=== PATIENT | female | born 1980 | race Caucasian/White ===

== ENCOUNTER 2017-10-29 09:52 | Day surgery (SDC) | payer OTHER ==
[2017-10-29] MEDS: Lactated Ringers 1,000 ML IV SCH ×2 (11:00→15:10)
[2017-10-29] MEDS ORDERED: Bupivacaine 0.25% 30 ML SDV ONE (11:27)
[2017-10-29] MEDS ORDERED: fentaNYL 250 MCG/5 ML SDV ONE (11:35)
[2017-10-29] MEDS ORDERED: Midazolam 1 MG/ML 2 ML SDV ONE (11:35)
[2017-10-29] MEDS ORDERED: Propofol 200 MG/20 ML SDV ONE (11:35)
[2017-10-29] MEDS ORDERED: Lidocaine 1% 4 ML ONE (11:36)
[2017-10-29] MEDS ORDERED: Ondansetron 4 MG/2 ML SDV ONE (11:36)
[2017-10-29] MEDS ORDERED: Dexamethasone 4 MG/ML 5 ML MDV ONE (11:36)
[2017-10-29] MEDS ORDERED: Rocuronium 50 MG/5 ML Vial ONE (11:36)
[2017-10-29] MEDS ORDERED: Sodium Chloride 0.9% 10 ML Syringe FLUSH PRN (12:34)
[2017-10-29] MEDS ORDERED: Lidocaine 1%/Sod Bicarbonate in NS 8.4% 1 ML Syringe IDERM ONE (12:39)
[2017-10-29] MEDS ORDERED: HYDROmorphone 0.5 MG/0.5 ML Syringe ONE (13:32)
--- NOTE | 2017-10-29 14:34 | CR ---
Left clavicle: Two views of the right clavicle were obtained utilizing C-arm device. Study shows placement of plate and screws affixing previous left clavicle fracture. Alignment has been restored to anatomic. Fluoroscopy time given as 4.0 seconds. Impression: 1. Reduction and fixation of previous left clavicle fracture. Diagnostic code #2
[2017-10-29] MEDS ORDERED: Meperidine 50 MG/ML Vial IVPUSH PRN (14:53)
[2017-10-29] MEDS ORDERED: diphenhydrAMINE 50 MG/ML SDV IVPUSH PRN (14:53)
[2017-10-29] MEDS ORDERED: Ondansetron 4 MG/2 ML SDV IVPUSH PRN (14:53)
[2017-10-29] MEDS ORDERED: fentaNYL 100 MCG/2 ML SDV EPIDUR PRN (14:53)
--- NOTE | 2017-10-29 14:53 | PCM.POSTAN ---
POST ANESTHESIA ASSESSMENT - MENTAL STATUS Mental Status: Alert, Oriented - VITAL SIGNS Pulse Rate: 81 SaO2: 99 Resp Rate: 10 Blood Pressure: 128/77 Temperature: 36.6 C - RESPIRATORY Respiratory Status: Respiratory Rate WNL, Airway Patent, O2 Saturation Stable, Supplemental Oxygen - CARDIOVASCULAR CV Status: Pulse Rate WNL, Blood Pressure Stable - GASTROINTESTINAL GI Status: No Symptoms - PAIN Pain Score: 0 - POST OP HYDRATION Hydration Status: Adequate & Stable
--- NOTE | 2017-10-29 15:04 | PCM.PREANE ---
Preanesthetic Assessment - Procedure Proposed Procedure: ORIF Left clavicle fracture - Anesthesia/Transfusion/Family Hx Anesthesia History: Prior Anesthesia Reaction Type of Anesthesia Reaction: Excessive Nausea/Vomiting Family History of Anesthesia Reaction: No Transfusion History: No Prior Transfusion(s) - Review of Systems General: No Symptoms Pulmonary: No Symptoms Cardiovascular: No Symptoms Gastrointestinal: Other (GERD) Neurological: Headache, Other (Turmor on pituitary (told it was benign) diagnosed about 3 months ago) Other: Reports: None - Physical Assessment NPO Status Date: 10/29/17 NPO Status Time: 00:00 Pulse: 81 O2 Sat by Pulse Oximetry: 99 Respiratory Rate: 10 Blood Pressure: 128/77 Temperature: 36.6 C Vital Signs: Last Vital Signs Temp 36.6 C 10/29/17 14:53 Pulse 81 10/29/17 14:53 Resp 10 L 10/29/17 14:53 BP 128/77 10/29/17 14:53 Pulse Ox 99 10/29/17 14:53 Height: 1.63 m Weight: 83.007 kg ASA Class: 2 Mental Status: Alert & Oriented x3 Airway Class: Mallampati = 2 Dentition: Reports: Normal Dentition Thyro-Mental Finger Breadths: 3 Mouth Opening Finger Breadths: 3 ROM/Head Extension: Full Lungs: Clear to Auscultation, Normal Respiratory Effort Cardiovascular: Regular Rate, Regular Rhythm - Lab Values: Laboratory Last Values HCG, Qual Positive (NEGATIVE) H 10/29/17 11:30 HCG, Quant 21.0 mIU/mL 10/29/17 11:30 Urine HCG, Qual Positive (NEGATIVE) 10/29/17 11:05 MRSA (PCR) Negative 10/28/17 12:50 - Allergies Allergies/Adverse Reactions: Allergies Allergy/AdvReac Type Severity Reaction Status Date / Time Penicillins Allergy Hives Verified 10/28/17 14:07 - Blood Blood Available: No Product(s) Available: None - Anesthesia Plan Pre-Op Medication Ordered: None - Acknowledgements Anesthesia Type Planned: General Anesthesia (Patient has a positive urine HCG level. Serum quantitative test ordered resulted with HCG 21. Patient was unaware she was and was given the choice to talk with an OB before her upcoming procedure to fully understand the risks and complications for both and maternal stantpoints before proceding with surgery. Dr Pompa (whom she has recently seen in the past) came to visit with her regarding her present situation and after speaking with him the patient decided to still proceed with surgery. Pateint has no further questions. 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 Musculoskeletal History: Reports: None Neurological History: Reports: None Psychiatric History: Reports: None Endocrine/Metabolic History: Reports: Other (See Below) Other Endocrine/Metabolic History: pituitary gland tumor Immunologic History: Reports: None Oncologic (Cancer) History: Reports: None Dermatologic History: Reports: None - Past Surgical History Head Surgeries/Procedures: Reports: None HEENT Surgical History: Reports: None Cardiovascular Surgical History: Reports: None Respiratory Surgical History: Reports: None GI Surgical History: Reports: None Female Surgical History: Reports: Breast Implant, LEEP Male Surgical History: Reports: None Endocrine Surgical History: Reports: None Neurological Surgical History: Reports: None Musculoskeletal Surgical History: Reports: None Oncologic Surgical History: Reports: None Dermatological Surgical History: Reports: None - SUBSTANCE USE Smoking Status *Q: Never Smoker Recreational Drug Use History: No - HOME MEDS Home Medications: Home Meds Cabergoline 0.5 tab PO SUWE 10/22/17 [History] - CURRENT (IN HOUSE) MEDS Current Meds: Current Medications Diphenhydramine HCl (Benadryl) 25 mg IVPUSH Q6H PRN PRN Reason: Pruritis Stop: 10/29/17 20:00 Fentanyl (Sublimaze) 100 mcg EPIDUR Q3H PRN PRN Reason: Pain Stop: 10/29/17 20:00 Lactated Ringer's (Ringers, Lactated) 1,000 mls @ 125 mls/hr IV ASDIRECTED RON Stop: 10/29/17 23:00 Last Admin: 10/29/17 11:00 Dose: 125 mls/hr Meperidine HCl (Demerol) 12.5 mg IVPUSH ONETIME PRN PRN Reason: Shivering Ondansetron HCl (Zofran) 4 mg IVPUSH ONETIME PRN PRN Reason: Nausea/Vomiting Sodium Chloride (Saline Flush) 10 ml FLUSH ASDIRECTED PRN PRN Reason: Keep Vein Open Stop: 10/29/17 23:00 Discontinued Medications Bupivacaine HCl (Marcaine 0.25%) Confirm Administered Dose 30 ml .ROUTE .STK- MED ONE Stop: 10/29/17 11:28 Dexamethasone (Dexamethasone) Confirm Administered Dose 20 mg .ROUTE .STK-MED ONE Stop: 10/29/17 11:37 Fentanyl (Sublimaze) Confirm Administered Dose 250 mcg .ROUTE .STK-MED ONE Stop: 10/29/17 11:36 Hydromorphone HCl (Dilaudid) Confirm Administered Dose 1 mg .ROUTE .STK-MED ONE Stop: 10/29/17 13:33 Lidocaine HCl (Xylocaine-Mpf 1%) Confirm Administered Dose 4 mls @ as directed .ROUTE .STK-MED ONE Stop: 10/29/17 11:37 Lidocaine/Sodium Bicarbonate (Buffered Lidocaine 1% In Ns 8.4%) 0.25 ml IDERM ONETIME ONE Stop: 10/29/17 12:40 Midazolam HCl (Versed 1 Mg/Ml) Confirm Administered Dose 2 mg .ROUTE .STK-MED ONE Stop: 10/29/17 11:36 Ondansetron HCl (Zofran) Confirm Administered Dose 4 mg .ROUTE .STK-MED ONE Stop: 10/29/17 11:37 Propofol (Diprivan 20 Ml) Confirm Administered Dose 200 mg .ROUTE .STK-MED ONE Stop: 10/29/17 11:36 Rocuronium Union (Zemuron) Confirm Administered Dose 50 mg .ROUTE .STK-MED ONE Stop: 10/29/17 11:37
[2017-10-29] MEDS ORDERED: Acetaminophen/oxyCODONE 325-5 MG Tab PO PRN (15:52)
--- NOTE | 2017-11-05 06:44 | PCM.OPNOTE ---
- General Post-Op/Procedure Note Date of Surgery/Procedure: 10/29/17 Operative Procedure(s): open reduction internal fixation left clavicle shaft fracture Pre Op Diagnosis: left clavicle shaft fracture Post-Op Diagnosis: Same Anesthesia Technique: General ET Tube, Local Primary Surgeon: Stephan Nguyễn Anesthesia Provider: Phi Lipscomb Product Development Scientist: Reyna Willard EBL in mLs: 50 Complications: None Condition: Good
--- NOTE | 2017-11-09 07:59 | OR ---
DATE OF OPERATION: 10/29/2017 SURGEON: Stephan Nguyễn MD OPERATION PERFORMED: Open reduction, internal fixation of left clavicle shaft fracture. PREOPERATIVE DIAGNOSIS: Left clavicle shaft fracture. POSTOPERATIVE DIAGNOSIS: Left clavicle shaft fracture. ANESTHESIA: General endotracheal intubation with local. ANESTHESIOLOGIST: Phi Lipscomb. ASSISTANTS: 1. Reyna Willard PA-C. ESTIMATED BLOOD LOSS: 50 mL. COMPLICATIONS: None. CONDITION: Stable. DESCRIPTION OF PROCEDURE: The patient was identified in the preop holding area. Proper site was marked and identified by the surgeon. The patient was taken back to the OR after adequate anesthesia, the patient was placed supine on a radiolucent table. Left upper extremity was then sterilely prepped and draped in the usual sterile fashion. OR time-out was performed. The patient received 2 g IV Ancef. Standard incision was made over the clavicle shaft fracture. At this time, taken through the layer of the platysma and then the fracture was identified. At this time, provisional reduction was then done and a 7 hole Aunm contoured clavicle compression plate was then placed. It was found to be in adequate position. At this time, a cortical screw was placed on the medial side and then a cortical screw was placed on the lateral side in compression technique. It was found to have good reduction on both AP, and oblique views. At this time, 2 more nonlocking screws were placed on either side of the fracture, both on the medial and lateral side. It was found to have good provisional fixation. At this time, adequate saline was irrigated through the wound. It was found to have anatomic reduction on C-arm fluoroscopy. An 0 Vicryl was used for closure of the platysma level, 2-0 Vicryl was used subcutaneously, and Prineo was used for the skin. The patient was sent to PACU in stable condition. MMODAL /[id number]
== END 2017-10-29 17:20 | disposition home or self-care (01) ==
LOC: JD.SDS 09:52
PROVIDERS: ATTEND Orthopaedic Surgery
DX: S42.022A Displaced fracture of shaft of left clavicle, initial encounter for closed fracture (principal); V29.9XXA Motorcycle rider (driver) (passenger) injured in unspecified traffic accident, initial encounter; Z88.0 Allergy status to penicillin
CPT/HCPCS: 23515; 36415; 76000; 81025; 84702; 84703; 87641; A9270; C1713; J1100; J1170; J2405; J2704; J3010; J3490; J7120; 00450; J2001; J2250

== ENCOUNTER 2017-11-05 15:15 | Emergency (ER) | payer OTHER ==
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
== END 2017-11-05 16:25 | disposition home or self-care (01) ==
LOC: JD.ED 15:15
DX: S29.012A Strain of muscle and tendon of back wall of thorax, initial encounter (principal); S42.022D Displaced fracture of shaft of left clavicle, subsequent encounter for fracture with routine healing; Z88.0 Allergy status to penicillin; X58.XXXA Exposure to other specified factors, initial encounter; V29.9XXD Motorcycle rider (driver) (passenger) injured in unspecified traffic accident, subsequent encounter
CPT/HCPCS: 99283; 99284

== ENCOUNTER 2018-07-14 05:29 | Emergency (ER) | payer OTHER ==
[2018-07-14] MEDS ORDERED: HYDROmorphone 1 MG/ML Syringe IM ONE (05:54)
--- NOTE | 2018-07-14 05:59 | EDM.PDOC ---
ED HPI GENERAL MEDICAL PROBLEM - General Chief Complaint: ENT Problem Stated Complaint: SWOLLEN JAW/TOOTHACHE Time Seen by Provider: 07/14/18 05:48 Source of Information: Reports: Patient History Limitations: Reports: No Limitations - History of Present Illness INITIAL COMMENTS - FREE TEXT/NARRATIVE: The patient presents with left upper tooth pain and facial swelling. She started having pain yesterday and she made an appointment with her dentist for today. Throughout the night her pain is worse and she has more swelling. She has no fever or chills. The patient is 12 weeks . Onset: Gradual Duration: Day(s): Location: Reports: Face (left upper tooth) Quality: Reports: Sharp Severity: Severe Improves with: Reports: None Worsens with: Reports: None Associated Symptoms: Reports: No Other Symptoms Left Upper Tooth/Teeth Pain Score (Numeric/FACES): 7 - Related Data Allergies Allergy/AdvReac Type Severity Reaction Status Date / Time amoxicillin Allergy Hives Verified 07/14/18 05:50 Home Meds: Home Meds Cabergoline 0.25 mg PO TUFR 01/31/18 [History] Clindamycin HCl 300 mg PO QID #40 capsule 07/14/18 [Rx] Hydrocodone/Acetaminophen [Hydrocodon-Acetaminophen 5-325] 1 - 2 each PO Q6HR PRN #20 tablet 07/14/18 [Rx] Past Medical History - Past Health History Medical/Surgical History: Denies Medical/Surgical History HEENT History: Reports: None Cardiovascular History: Reports: None Respiratory History: Reports: SOB Gastrointestinal History: Reports: None 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, Musculoskeletal History: Reports: None Neurological History: Reports: None Psychiatric History: Reports: None Endocrine/Metabolic History: Reports: Other (See Below) Other Endocrine/Metabolic History: pituitary gland tumor Immunologic History: Reports: None Oncologic (Cancer) History: Reports: None Dermatologic History: Reports: None - Past Surgical History Head Surgeries/Procedures: Reports: None HEENT Surgical History: Reports: None Cardiovascular Surgical History: Reports: None Respiratory Surgical History: Reports: None GI Surgical History: Reports: None Female Surgical History: Reports: Breast Implant, LEEP Endocrine Surgical History: Reports: None Neurological Surgical History: Reports: None Musculoskeletal Surgical History: Reports: None, Other (See Below) Other Musculoskeletal Surgeries/Procedures:: left collar bone surgery, plate placed Oncologic Surgical History: Reports: None Dermatological Surgical History: Reports: None Social & Family History - Tobacco Use Smoking Status *Q: Never Smoker - Caffeine Use Caffeine Use: Reports: None - Recreational Drug Use Recreational Drug Use: No - Living Situation & Occupation Living situation: Reports: Single Occupation: Employed ED ROS ENT - Review of Systems Review Of Systems: See Below Constitutional: Reports: No Symptoms HEENT: Reports: Dental Pain Respiratory: Reports: No Symptoms Cardiovascular: Reports: No Symptoms Endocrine: Reports: No Symptoms GI/Abdominal: Reports: No Symptoms : Reports: No Symptoms Musculoskeletal: Reports: No Symptoms ED EXAM, ENT - Physical Exam Exam: See Below Exam Limited By: No Limitations General Appearance: Alert, No Apparent Distress Ears: Normal External Exam Mouth/Throat: Other (Swelling to the upper jaw with facial swelling and pain upon palpation to the left upper 2nd molar) Course - Vital Signs Last Recorded V/S: Last Vital Signs Temp 97.8 F 07/14/18 05:39 Pulse 91 07/14/18 05:39 Resp 20 07/14/18 05:39 BP 137/100 H 07/14/18 05:39 Pulse Ox 99 07/14/18 05:39 - Re-Assessments/Exams Free Text/Narrative Re-Assessment/Exam: 07/14/18 05:57 I ordered rocephin 1 gram IM and dilaudid 1mg IM. I will get her on clindamycin and some hydrocodone for pain. Departure - Departure Time of Disposition: 06:00 Disposition: Home, Self-Care 01 Condition: Good Clinical Impression: Dental abscess, Pain, dental, Dental cavity - Discharge Information *PRESCRIPTION DRUG MONITORING PROGRAM REVIEWED*: No *COPY OF PRESCRIPTION DRUG MONITORING REPORT IN PATIENT NANI: No Prescriptions: Hydrocodone/Acetaminophen [Hydrocodon-Acetaminophen 5-325] 1 - 2 each PO Q6HR PRN #20 tablet PRN Reason: Pain Clindamycin HCl 300 mg PO QID #40 capsule Referrals: Bennett Rangel PA [Primary Care Provider] - 1 Week Additional Instructions: Take the clindamycin 1 pill 4 times per day for 10 days. Take the hydrocodone as needed for pain. Put warm compresses on your face for 15 minutes 3 times per day for 5 days. Follow up with your dentist. Please return if you are worse.
[2018-07-14] MEDS ORDERED: cefTRIAXone 1 GM, Lidocaine 1% 2.1 ML IM SCH ×2 (06:00)
== END 2018-07-14 06:30 | disposition home or self-care (01) ==
LOC: JD.ED 05:29
DX: K04.7 Periapical abscess without sinus (principal); Z88.1 Allergy status to other antibiotic agents
CPT/HCPCS: 96372; 99282; J0696; J1170; J2001; 99283

== ENCOUNTER 2018-07-14 18:29 | Emergency (ER) | payer OTHER ==
[2018-07-14] MEDS ORDERED: HYDROmorphone 1 MG/ML Syringe IVPUSH ONE (19:19)
[2018-07-14] MEDS ORDERED: Clindamycin Phosphate in D5W 900 MG in Premix Bag 1 BAG IV ONE ×2 (19:19)
[2018-07-14] MEDS ORDERED: Sodium Chloride 0.9% 10 ML Syringe FLUSH PRN (19:19)
--- NOTE | 2018-07-14 19:31 | EDM.PDOC ---
ED HPI GENERAL MEDICAL PROBLEM - General Chief Complaint: ENT Problem Stated Complaint: SWELLING TOOTH PAIN ENTIRE 12 WKS PG Time Seen by Provider: 07/14/18 19:09 Source of Information: Reports: Patient History Limitations: Reports: No Limitations - History of Present Illness INITIAL COMMENTS - FREE TEXT/NARRATIVE: The patient presents with left upper jaw dental pain and facial swelling. This all started a couple days ago with dental pain and last night she developed more pain and facial swelling. I saw her early this morning and gave her a shot of rocephin and put her on some clindamycin. She saw her dentist at 11:30 this morning and he lanced the abscess and had her continue the clindamycin. The swelling in her face has gotten worse. She was told to come back her for a shot of antibiotic if it got worse. Onset: Gradual Duration: Day(s): Location: Reports: Face Quality: Reports: Sharp Severity: Severe Improves with: Reports: None Worsens with: Reports: None Associated Symptoms: Reports: No Other Symptoms - Related Data Allergies Allergy/AdvReac Type Severity Reaction Status Date / Time amoxicillin Allergy Hives Verified 07/14/18 18:41 Home Meds: Home Meds Clindamycin HCl 300 mg PO QID #40 capsule 07/14/18 [Rx] Hydrocodone/Acetaminophen [Hydrocodon-Acetaminophen 5-325] 1 - 2 each PO Q6HR PRN #20 tablet 07/14/18 [Rx] Past Medical History - Past Health History Medical/Surgical History: Denies Medical/Surgical History HEENT History: Reports: None Cardiovascular History: Reports: None Respiratory History: Reports: SOB Gastrointestinal History: Reports: None [employer] History: Reports: None, Musculoskeletal History: Reports: None Neurological History: Reports: None Psychiatric History: Reports: None Endocrine/Metabolic History: Reports: Other (See Below) Other Endocrine/Metabolic History: pituitary gland tumor Immunologic History: Reports: None Oncologic (Cancer) History: Reports: None Dermatologic History: Reports: None - Past Surgical History Head Surgeries/Procedures: Reports: None HEENT Surgical History: Reports: None Cardiovascular Surgical History: Reports: None Respiratory Surgical History: Reports: None GI Surgical History: Reports: None Female Surgical History: Reports: Breast Implant, LEEP Endocrine Surgical History: Reports: None Neurological Surgical History: Reports: None Musculoskeletal Surgical History: Reports: None, Other (See Below) Other Musculoskeletal Surgeries/Procedures:: left collar bone surgery, plate placed Oncologic Surgical History: Reports: None Dermatological Surgical History: Reports: None Social & Family History - Tobacco Use Smoking Status *Q: Never Smoker - Caffeine Use Caffeine Use: Reports: None - Recreational Drug Use Recreational Drug Use: No - Living Situation & Occupation Living situation: Reports: Single Occupation: Employed ED ROS ENT - Review of Systems Review Of Systems: See Below Constitutional: Reports: No Symptoms HEENT: Reports: Dental Pain, Other (facial swelling) Respiratory: Reports: No Symptoms Cardiovascular: Reports: No Symptoms Endocrine: Reports: No Symptoms GI/Abdominal: Reports: No Symptoms : Reports: No Symptoms Musculoskeletal: Reports: No Symptoms Skin: Reports: No Symptoms Neurological: Reports: No Symptoms ED EXAM, ENT - Physical Exam Exam: See Below Exam Limited By: No Limitations General Appearance: Alert, No Apparent Distress Ears: Normal External Exam Nose: Normal Inspection Mouth/Throat: Other (Pain upon palpation and edema to the left upper jaw line near the 2nd molar. Edema to the left side of her face.) Head: Other (Edema to the left side of her face inclucing the eyelids and the left cheek) Neck: Normal Inspection Respiratory/Chest: No Respiratory Distress Course - Vital Signs Last Recorded V/S: Last Vital Signs Temp 98.4 F 07/14/18 18:39 Pulse 91 07/14/18 18:39 Resp 16 07/14/18 18:39 BP 136/98 H 07/14/18 18:39 Pulse Ox 99 07/14/18 18:39 - Orders/Labs/Meds Orders: Active Orders 24 hr Category Date Time Status Peripheral IV Care [RC] . DIRECTED Care 07/14/18 19:19 Active Sodium Chloride 0.9% [Saline Flush] Med 07/14/18 19:19 Active 10 ml FLUSH ASDIRECTED PRN Peripheral IV Insertion Adult [OM.PC] Routine Oth 07/14/18 19:19 Ordered Medication Orders Sodium Chloride (Saline Flush) 10 ml FLUSH ASDIRECTED PRN PRN Reason: Keep Vein Open Last Admin: 07/14/18 19:35 Dose: 10 ml Labs: Laboratory Tests 07/14/18 07/14/18 Range/Units 19:55 19:55 WBC 11.39 H (3.98-10.04) K/mm3 RBC 4.14 (3.98-5.22) M/mm3 Hgb 11.8 (11.2-15.7) gm/L Hct 35.3 (34.1-44.9) % MCV 85.3 (79.4-94.8) fl MCH 28.5 (25.6-32.2) pg MCHC 33.4 (32.2-35.5) g/dl RDW Std Deviation 43.0 (36.4-46.3) fL Plt Count 281 (182-369) K/mm3 MPV 8.5 L (9.4-12.3) fl Neut % (Auto) 76.7 H (34.0-71.1) % Lymph % (Auto) 14.1 L (19.3-51.7) % [place] % (Auto) 7.6 (4.7-12.5) % Eos % (Auto) 1.2 (0.7-5.8) Baso % (Auto) 0.2 (0.1-1.2) % Neut # (Auto) 8.74 H (1.56-6.13) K/mm3 Lymph # (Auto) 1.61 (1.18-3.74) K/mm3 [place] # (Auto) 0.86 H (0.24-0.36) K/mm3 Eos # (Auto) 0.14 (0.04-0.36) K/mm3 Baso # (Auto) 0.02 (0.01-0.08) K/mm3 Sodium 136 (136-145) mEq/L Potassium 3.5 (3.5-5.1) mEq/L Chloride 101 (98-107) mEq/L Carbon Dioxide 22 (21-32) mEq/L Anion Gap 16.5 H (5-15) BUN 8 (7-18) mg/dL Creatinine 0.5 L (0.55-1.02) mg/dL Est Cr Clr Drug Dosing 134.32 mL/min Estimated GFR (MDRD) > 60 (>60) mL/min BUN/Creatinine Ratio 16.0 (14-18) Glucose 97 (74-106) mg/dL Calcium 8.8 (8.5-10.1) mg/dL Meds: Medications Generic Name Dose Route Start Last Admin Trade Name Freq PRN Reason Stop Dose Admin Sodium Chloride 10 ml 07/14/18 19:19 07/14/18 19:35 Saline Flush FLUSH 10 ml ASDIRECTED PRN Administration Keep Vein Open Discontinued Medications Generic Name Dose Route Start Last Admin Trade Name Yehuda PRN Reason Stop Dose Admin Hydromorphone HCl 1 mg 07/14/18 19:19 07/14/18 19:35 Dilaudid IVPUSH 07/14/18 19:20 1 mg ONETIME ONE Administration Clindamycin Phosphate 900 mg/ 50 mls @ 100 mls/hr 07/14/18 19:19 07/14/18 19: 36 Premix IV 07/14/18 19:48 100 mls/hr ONETIME ONE Administration - Re-Assessments/Exams Free Text/Narrative Re-Assessment/Exam: 07/14/18 19:30 I ordered an IV saline lock, labs, dilaudid 1mg IV and clindamycin 900mg IV. 07/14/18 20:47 She feels better. I will arrange for her to get another shot of rocephin in the morning. I will also keep her on the clindamycin. Departure - Departure Time of Disposition: 20:50 Disposition: Home, Self-Care 01 Condition: Good Clinical Impression: Pain, dental, Dental cavity, Dental abscess - Discharge Information *PRESCRIPTION DRUG MONITORING PROGRAM REVIEWED*: Not Applicable *COPY OF PRESCRIPTION DRUG MONITORING REPORT IN PATIENT NANI: Not Applicable Forms: ED Department Discharge Additional Instructions: Keep taking your medications as prescribed. Sleep with your head up tonight. Put warm compresses on the affected area 2 to 3 times per day for 4 days. Come back tomorrow at your convenience for another shot of antibiotics. Please return if you are worse. - My Orders Last 24 Hours: My Active Orders 07/14/18 19:19 Peripheral IV Care [RC] . DIRECTED Sodium Chloride 0.9% [Saline Flush] 10 ml FLUSH ASDIRECTED PRN Peripheral IV Insertion Adult [OM.PC] Routine - Assessment/Plan Last 24 Hours: My Active Orders 07/14/18 19:19 Peripheral IV Care [RC] . DIRECTED Sodium Chloride 0.9% [Saline Flush] 10 ml FLUSH ASDIRECTED PRN Peripheral IV Insertion Adult [OM.PC] Routine
== END 2018-07-14 21:00 | disposition home or self-care (01) ==
LOC: JD.ED 18:29
DX: O99.611 Diseases of the digestive system complicating pregnancy, first trimester (principal); K04.7 Periapical abscess without sinus; Z88.1 Allergy status to other antibiotic agents; Z3A.12 12 weeks gestation of pregnancy; O09.521 Supervision of elderly multigravida, first trimester
CPT/HCPCS: 36415; 80048; 85025; 96365; 96375; 99283; J1170; J3490

== ENCOUNTER 2019-01-08 05:27 | Inpatient (IN) | payer OTHER, BC ==
[2019-01-08] MEDS ORDERED: Nalbuphine 10 MG/1 ML Vial IVPUSH PRN (08:26)
[2019-01-08] MEDS ORDERED: Sodium Chloride 0.9% 10 ML Syringe FLUSH PRN (08:39)
[2019-01-08] MEDS ORDERED: Ondansetron 4 MG/2 ML SDV IVPUSH PRN (08:39)
[2019-01-08] MEDS ORDERED: Calcium Carbonate 500 MG Tab.Chew PO PRN (08:39)
[2019-01-08] MEDS ORDERED: Oxytocin/Lactated Ringers 10 UNIT/1,000 ML BAG IV SCH (08:45)
--- NOTE | 2019-01-08 09:28 | PCM.LDHP ---
<Cullen Andrews - Last Filed: 01/08/19 09:31> L&D History of Present Illness - General Date of Service: 01/08/19 Admit Problem/Dx: Patient Status Order with Admit Dx/Problem 01/08/19 08:34 Patient Status [ADT] Routine Admission Diagnosis/Problem Admission Diagnosis/Problem Term 01/08/19 08:55 Yvon is a 38 yo white female who presents today for medical induction of labor for gestational hypertension. Source of Information: Patient History Limitations: Reports: No Limitations - History of Present Illness Introduction:: Yvon is a 38 yo white female at 37-0/7 weeks gestational age with an EDWARDO of 01/29/2019 admitted for medical induction of labor due to gestational hypertension. She is currently not experiencing contractions. She had artificial rupture of membranes at approximately 0800 today. She plans to breastfeed. 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 EDWARDO 01/29/2019 as determined by certain LMP starting 04/24/2018 and supported by 3 ultrasounds done on 07/05/2018, 09/14/2018 , and 01/03/2019. Patient had menarche at 13 years. Patient had regular periods. She was not using any control to time conception. Her first two pregnancies resulted in a spontaneous , the second of which occurred on 04/01/2018. course is complicated by anemia with Hgb of 9.5, gestational hypertension diagnosed at 35 weeks gestational age, genital herpes, pituitary adenoma with hyperprolactinemia, advanced maternal age, and history of multiple miscarriages. She desires epidural during labor. . She had a one hour GTT which was normal at 125. Her first visit was on 07/05/2018. She had regular visits. Weight gain was from 174lbs up to 262 lbs for a total weight gain of 88 lbs. Patient did develop mild range elevated blood pressures around 35 weeks. Patient did receive the influenza vaccine. Her TDaP was given on 11/15/2018. She is rubella immune. Patient has completed her hepatitis B vaccination course. Lab testing in showed blood to be A positive with negative antibody screen. First hemoglobin is 13.2 g/dL. Platelets were 271,000. RPR is nonreactive. Urine culture is negative. HBsAg and HIV assays were both negative as were chlamydia and gonorrhea tests. Second trimester labs showed hemoglobin 9.5 g/dL and platelets at 335,000. Group B strep screen was negative. Allergies: Amoxicillin - hives Medications: 1. vitamins 2. Valacyclovir 500mg oral tablets 3. Omeprazole 40mg oral tablet 4. Cyclobenzaprine HCl 10mg oral tablets 5. Ondansetron 4 mg oral tablet Past medical history: 1. Spontaneous x2 2. Seasonal allergies 3. Abnormal pap smear - 2017 4. Pituitary microadenoma with hyperprolactinemia 5. Genital herpes Past Surgical History: 1. Shoulder surgery - 2017 2. Breast augmentation of right breast - 1998 3. Colposcopy - 2017 Family History: Mom is alive and has depression, thyroid disease, and history of GDM. Father is alive with hypertension, T2DM, GERD, and history of colon cancer. 1 brother with depression. MGM with with bone cancer. PGF with non-hodgkins lymphoma. PGM with breast cancer. Social History: Pt is . Lives in [place], [place]. 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 She does not use any significant amount of alcohol, drugs, or tobacco. Review of systems: In general patient has no complaints Skin: Negative Lungs: no infections symptoms or shortness of breath Cardiovascular: no chest pain or exercise intolerance Breasts: No lumps, changes in size, pain, dimpling, discharge or axillary or supraclavicular concerns. GI: negative : negative Musculoskeletal: negative Neurological: Negative Physical Exam: In general the patient is a well-developed, well-nourished, pleasant female of stated age in no acute distress. Vital signs are stable. Patient is afebrile. On last evaluation in clinic her blood pressure was 142/105. Weight was 262 pounds. Pregravid weight was 174lbs. Pregravid BMI was 29.9. Height is 5 foot 4. Skin is warm and dry without lesions. HEENT, neck and back within normal limits. Lungs are clear with good breath sounds in all lung steele Cardiovascular exam shows regular rate and rhythm without murmurs. Breast exam done at time of first appointment but not repeated at this time. Abdomen is gravid with last fundal height in clinic at 40 cm Genital exam on last evaluation in clinic shows cervix to be 0.5 cm, 90% effaced , soft, anterior, and -2 station. Extremities and neurological exam are grossly within normal limits. - Related Data Allergies/Adverse Reactions: Allergies Allergy/AdvReac Type Severity Reaction Status Date / Time amoxicillin Allergy Hives Verified 01/08/19 09:06 Home Medications: Home Meds Ferrous Sulfate [Iron] 325 mg PO DAILY 01/08/19 [History] Omeprazole Magnesium [Prilosec Otc] 40 mg PO DAILY 01/08/19 [History] No122/Iron/Folic Acid [ Multi Tablet] 1 each PO DAILY 01/08/19 [History] Past Medical History - Past Health History Medical/Surgical History: Denies Medical/Surgical History HEENT History: Reports: None Cardiovascular History: Reports: None Respiratory History: Reports: SOB Gastrointestinal History: Reports: None HOUSING DIRECTOR History: Reports: None, Musculoskeletal History: Reports: None Neurological History: Reports: None Psychiatric History: Reports: None Endocrine/Metabolic History: Reports: Other (See Below) Other Endocrine/Metabolic History: pituitary gland tumor Immunologic History: Reports: None Oncologic (Cancer) History: Reports: None Dermatologic History: Reports: None - Past Surgical History Head Surgeries/Procedures: Reports: None HEENT Surgical History: Reports: None Cardiovascular Surgical History: Reports: None Respiratory Surgical History: Reports: None GI Surgical History: Reports: None Female Surgical History: Reports: Breast Implant, LEEP Endocrine Surgical History: Reports: None Neurological Surgical History: Reports: None Musculoskeletal Surgical History: Reports: None, Other (See Below) Other Musculoskeletal Surgeries/Procedures:: left collar bone surgery, plate placed Oncologic Surgical History: Reports: None Dermatological Surgical History: Reports: None Social & Family History - Caffeine Use Caffeine Use: Reports: None - Living Situation & Occupation Living situation: Reports: Single Occupation: Employed - Patient Data Result Diagrams: 01/08/19 09:03 - Problem List (1) SNOMED Code(s): 43109754 ICD Code: Z34.90 - ENCNTR FOR SUPRVSN OF NORMAL , UNSP, UNSP TRIMESTER Status: Acute Current Visit: Yes (2) Gestational hypertension SNOMED Code(s): 360421798 ICD Code: O13.9 - GESTATIONAL HTN W/O SIGNIFICANT PROTEINURIA, UNSP TRIMESTER Status: Acute Current Visit: Yes (3) Anemia affecting SNOMED Code(s): 27449768 ICD Code: O99.019 - ANEMIA COMPLICATING , UNSPECIFIED TRIMESTER Status: Acute Current Visit: Yes (4) Genital herpes affecting SNOMED Code(s): 57113099 ICD Code: O98.319 - OTH INFECT W SEXL MODE OF TRANSMISS COMP PREG, UNSP TRI; A60.09 - HERPESVIRAL INFECTION OF OTHER UROGENITAL TRACT Status: Acute Current Visit: Yes (5) Pituitary microadenoma with hyperprolactinemia SNOMED Code(s): 880669678 ICD Code: D35.2 - BENIGN NEOPLASM OF PITUITARY GLAND; E22.9 - HYPERFUNCTION OF PITUITARY GLAND, UNSPECIFIED Status: Acute Current Visit: Yes (6) History of recurrent miscarriages SNOMED Code(s): 021911042 ICD Code: N96 - RECURRENT LOSS Status: Acute Current Visit: Yes Problem List Initiated/Reviewed/Updated: Yes Orders Last 24hrs: Active Orders 24 hr Category Date Time Status Patient Status [ADT] Routine ADT 01/08/19 08:34 Active Activity as Tolerated [RC] PFP Care 01/08/19 08:29 Active Communication Order [RC] ASDIRECTED Care 01/08/19 08:29 Active Communication Order [RC] ASDIRECTED Care 01/08/19 08:29 Active Communication Order [RC] ASDIRECTED Care 01/08/19 08:29 Active Communication Order [RC] ASDIRECTED Care 01/08/19 08:29 Active Communication Order [RC] ASDIRECTED Care 01/08/19 08:29 Active Equipment to Bedside [RC] PRN Care 01/08/19 08:46 Active Heart Tones [RC] ASDIRECTED Care 01/08/19 08:42 Active Monitoring [RC] CONTINUOUS Care 01/08/19 08:29 Active Non Stress Test [RC] PER UNIT ROUTINE Care 01/08/19 08:29 Active Notify Provider Status Change [RC] ASDIRECTED Care 01/08/19 08:47 Active Notify Provider Vital Signs [RC] ASDIRECTED Care 01/08/19 08:46 Active Notify Provider [RC] ASDIRECTED Care 01/08/19 08:29 Active Notify Provider [RC] ASDIRECTED Care 01/08/19 08:29 Active Notify Provider [RC] PFP Care 01/08/19 08:29 Active Notify Provider [RC] PRN Care 01/08/19 08:29 Active Peripheral IV Care [RC] . DIRECTED Care 01/08/19 08:42 Active Pump Management, Intrathecal [RC] ASDIRECTED Care 01/08/19 08:47 Active Urinary Catheter Assessment [RC] ASDIRECTED Care 01/08/19 08:39 Active Vaginal Exam [RC] ASDIRECTED Care 01/08/19 08:29 Active Vital Signs [RC] PER UNIT ROUTINE Care 01/08/19 08:29 Active Regular Diet [DIET] Diet 01/08/19 Breakfast Active ALANINE AMINOTRANSFERASE,ALT [CHEM] Stat Lab 01/08/19 08:44 Ordered ASPARTATE AMNIOTRANSFERASE,AST [CHEM] Stat Lab 01/08/19 08:44 Ordered BLOOD UREA NITROGEN,BUN [CHEM] Stat Lab 01/08/19 08:44 Ordered CBC WITH AUTO DIFF [HEME] Stat Lab 01/08/19 08:44 Ordered CREATININE W/GFR [CHEM] Stat Lab 01/08/19 08:44 Ordered LACTATE DEHYDROGENASE,LDH [CHEM] Stat Lab 01/08/19 08:44 Ordered RAPID PLASMA REAGIN,RPR [CHEM] Stat Lab 01/08/19 08:39 Ordered UA W/MICROSCOPIC [URIN] Stat Lab 01/08/19 08:39 Ordered URIC ACID [CHEM] Stat Lab 01/08/19 08:44 Ordered Calcium Carbonate [Tums] Med 01/08/19 08:39 Ordered 1,000 mg PO Q2H PRN Lactated Ringers [Ringers, Lactated] 1,000 ml Med 01/08/19 08:30 Ordered IV ASDIRECTED Lidocaine 1% [Xylocaine 1%] Med 01/08/19 08:39 Once 50 ml INJECT ONETIME ONE Nalbuphine [Nubain] Med 01/08/19 08:26 Ordered 10 mg IVPUSH Q2H PRN Ondansetron [Zofran] Med 01/08/19 08:39 Ordered 4 mg IVPUSH Q4H PRN Oxytocin/Lactated Ringers [Pitocin in LR 10 Units/1,000 Med 01/08/19 08:45 Ordered ML] 10 unit in 1,000 ml IV .CONTINUOUS Oxytocin/Lactated Ringers [Pitocin in LR 10 Units/1,000 Med 01/08/19 08:45 Ordered ML] 10 unit in 1,000 ml IV TITRATE Sodium Chloride 0.9% [Saline Flush] Med 01/08/19 08:39 Ordered 10 ml FLUSH ASDIRECTED PRN Blood Pressure [OM.PC] ASDIRECTED Oth 01/08/19 08:30 Ordered Deep Tendon Reflexes [WOMSER] ASDIRECTED Ot 01/08/19 08:30 Ordered Electronic Heart Tones Ext w TOCO [WOMSER] Ot 01/08/19 08:29 Ordered Routine Electronic Heart Tones Internal [WOMSER] Per Unit Ot 01/08/19 08:29 Ordered Routine PIH Panel [OM.PC] Stat Ot 01/08/19 08:39 Ordered Peripheral IV Insertion Adult [OM.PC] Routine Ot 01/08/19 08:29 Ordered Resuscitation Status Routine Resus Stat 01/08/19 08:26 Ordered Medication Orders Calcium Carbonate/Glycine (Tums) 1,000 mg PO Q2H PRN PRN Reason: Indigestion Lactated Ringer's (Ringers, Lactated) 1,000 mls @ 100 mls/hr IV ASDIRECTED RON Oxytocin/Lactated Ringer's (Pitocin In Lr 10 Units/1,000 Ml) 10 unit in 1,000 mls @ 12 mls/hr IV TITRATE RON; Protocol Oxytocin/Lactated Ringer's (Pitocin In Lr 10 Units/1,000 Ml) 10 unit in 1,000 mls @ 500 mls/hr IV .CONTINUOUS RON Lidocaine HCl (Xylocaine 1%) 50 ml INJECT ONETIME ONE Stop: 01/08/19 08:40 Nalbuphine HCl (Nubain) 10 mg IVPUSH Q2H PRN PRN Reason: Pain Ondansetron HCl (Zofran) 4 mg IVPUSH Q4H PRN PRN Reason: Nausea/Vomiting Sodium Chloride (Saline Flush) 10 ml FLUSH ASDIRECTED PRN PRN Reason: Keep Vein Open Assessment/Plan Comment:: 1. 37-0/7 week intrauterine , active labor, artificial rupture membranes. 2. Patient plans to breastfeed 3. Patient desires epidural in labor and delivery 4. Rubella immune 5. Patient has received her TDaP 6. RPR nonreactive 7. GBS negative 8. Advanced maternal age 9. Genital herpes 10. Anemia in 11. Gestational hypertension Plan: 1. Anticipate normal spontaneous vaginal delivery 2. Epidural for labor and analgesia 3. Support breast-feeding decision 4. Preeclampsia labs to evaluate gestation hypertension vs. preeclampsia without severe features 5. Monitor vitals 6. Routine labor care. <Jagdeep Zamora F - Last Filed: 01/08/19 16:07> L&D History of Present Illness - General Admit Problem/Dx: Patient Status Order with Admit Dx/Problem 01/08/19 08:34 Patient Status [ADT] Routine Admission Diagnosis/Problem Admission Diagnosis/Problem Term H&P Review of Systems - Review of Systems: Review Of Systems: See Below L&D Exam - Exam Exam: See Below - Vital Signs Vital Signs: Last Vital Signs Temp 37.3 C 01/08/19 07:23 Pulse 114 H 01/08/19 07:23 Resp 16 01/08/19 07:23 BP 146/98 H 01/08/19 07:23 Pulse Ox 97 01/08/19 07:23 - Patient Data Lab Results Last 24 hrs: Laboratory Results - last 24 hr 01/08/19 01/08/19 01/08/19 Range/Units 07:50 09:03 09:03 WBC 11.74 H (3.98-10.04) K/mm3 RBC 4.21 (3.98-5.22) M/mm3 Hgb 11.5 (11.2-15.7) gm/dl Hct 35.7 (34.1-44.9) % MCV 84.8 (79.4-94.8) fl MCH 27.3 (25.6-32.2) pg MCHC 32.2 (32.2-35.5) g/dl RDW Std Deviation 56.4 H (36.4-46.3) fL Plt Count 245 (182-369) K/mm3 MPV 10.1 (9.4-12.3) fl Neut % (Auto) 76.2 H (34.0-71.1) % Lymph % (Auto) 16.6 L (19.3-51.7) % Placer % (Auto) 5.1 (4.7-12.5) % Eos % (Auto) 1.1 (0.7-5.8) Baso % (Auto) 0.2 (0.1-1.2) % Neut # (Auto) 8.95 H (1.56-6.13) K/mm3 Lymph # (Auto) 1.95 (1.18-3.74) K/mm3 Placer # (Auto) 0.60 H (0.24-0.36) K/mm3 Eos # (Auto) 0.13 (0.04-0.36) K/mm3 Baso # (Auto) 0.02 (0.01-0.08) K/mm3 BUN 12 (7-18) mg/dL Creatinine 0.6 (0.55-1.02) mg/dL Est Cr Clr Drug Dosing 111.93 mL/min Estimated GFR (MDRD) > 60 (>60) mL/min Uric Acid 6.9 H (2.6-6.0) mg/dL AST 13 L (15-37) U/L ALT 18 (14-59) U/L Lactate Dehydrogenase 201 (81-234) U/L Urine Color Dark yellow (Yellow) Urine Appearance Clear (Clear) Urine pH 5.5 (5.0-8.0) Ur Specific Orange > or = 1.030 (1.005-1.030) Urine Protein 2+ H (Negative) Urine Glucose (UA) Negative (Negative) Urine Ketones Trace H (Negative) Urine Occult Blood Trace-lysed H (Negative) Urine Nitrite Negative (Negative) Urine Bilirubin 1+ H (Negative) Urine Urobilinogen 0.2 (0.2-1.0) Ur Leukocyte Esterase Trace H (Negative) Urine RBC 5-10 H (0-5) /hpf Urine WBC 20-30 H (0-5) /hpf Ur Epithelial Cells 10-20 H (0-5) /hpf Urine Bacteria Many H (FEW) /hpf Urine Mucus Many H (FEW) /hpf Result Diagrams: 01/08/19 09:03 01/08/19 09:03 Problem List Initiated/Reviewed/Updated: Yes Orders Last 24hrs: Active Orders 24 hr Category Date Time Status Patient Status [ADT] Routine ADT 01/08/19 08:34 Active Activity as Tolerated [RC] PFP Care 01/08/19 08:29 Active Antiembolic Devices [RC] PER UNIT ROUTINE Care 01/08/19 13:37 Active Communication Order [RC] ASDIRECTED Care 01/08/19 08:29 Active Communication Order [RC] ASDIRECTED Care 01/08/19 08:29 Active Communication Order [RC] ASDIRECTED Care 01/08/19 08:29 Active Communication Order [RC] ASDIRECTED Care 01/08/19 08:29 Active Communication Order [RC] ASDIRECTED Care 01/08/19 08:29 Active Equipment to Bedside [RC] PRN Care 01/08/19 08:46 Active Monitoring [RC] CONTINUOUS Care 01/08/19 08:29 Active Notify Provider Status Change [RC] ASDIRECTED Care 01/08/19 08:47 Active Notify Provider Vital Signs [RC] ASDIRECTED Care 01/08/19 08:46 Active Notify Provider [RC] ASDIRECTED Care 01/08/19 08:29 Active Notify Provider [RC] ASDIRECTED Care 01/08/19 08:29 Active Notify Provider [RC] ASDIRECTED Care 01/08/19 12:42 Active Notify Provider [RC] PFP Care 01/08/19 08:29 Active Notify Provider [RC] PRN Care 01/08/19 08:29 Active Peripheral IV Care [RC] Q2HR Care 01/08/19 08:42 Active Pump Management, Intrathecal [RC] ASDIRECTED Care 01/08/19 08:47 Active Urinary Catheter Assessment [RC] ASDIRECTED Care 01/08/19 08:39 Active Regular Diet [DIET] Diet 01/08/19 Breakfast Active RAPID PLASMA REAGIN,RPR [CHEM] Stat Lab 01/08/19 09:03 Received Bupivacaine/fentaNYL/NS [fentaNYL/Bupivacaine/NS 2 MCG- Med 01/08/19 12:42 Active 0.125% 100 ML] 0 ml EPIDUR CONTINUOUS PRN Calcium Carbonate [Tums] Med 01/08/19 08:39 Active 1,000 mg PO Q2H PRN Lactated Ringers [Ringers, Lactated] 1,000 ml Med 01/08/19 08:30 Active IV ASDIRECTED Nalbuphine [Nubain] Med 01/08/19 08:26 Active 10 mg IVPUSH Q2H PRN Ondansetron [Zofran] Med 01/08/19 08:39 Active 4 mg IVPUSH Q4H PRN Oxytocin/Lactated Ringers [Pitocin in LR 10 Units/1,000 Med 01/08/19 08:45 Active ML] 10 unit in 1,000 ml IV .CONTINUOUS Oxytocin/Lactated Ringers [Pitocin in LR 10 Units/1,000 Med 01/08/19 08:45 Active ML] 10 unit in 1,000 ml IV TITRATE Sodium Chloride 0.9% [Saline Flush] Med 01/08/19 08:39 Active 10 ml FLUSH ASDIRECTED PRN diphenhydrAMINE [Benadryl] Med 01/08/19 12:42 Active 25 mg IVPUSH Q6H PRN ePHEDrine [ePHEDrine sulfate] Med 01/08/19 12:42 Active 5 mg IVPUSH ASDIRECTED PRN fentaNYL [Sublimaze] Med 01/08/19 12:42 Active 100 mcg EPIDUR Q3H PRN Blood Pressure [OM.PC] ASDIRECTED Oth 01/08/19 08:30 Ordered Deep Tendon Reflexes [WOMSER] ASDIRECTED Ot 01/08/19 08:30 Ordered Electronic Heart Tones Ext w TOCO [WOMSER] Ot 01/08/19 08:29 Ordered Routine Electronic Heart Tones Internal [WOMSER] Per Unit Oth 01/08/19 08:29 Ordered Routine PIH Panel [OM.PC] Stat Ot 01/08/19 08:39 Ordered Peripheral IV Insertion Adult [OM.PC] Routine Oth 01/08/19 08:29 Ordered SCD [Sequential Compression Device] [OM.PC] Routine Oth 01/08/19 13:37 Ordered Resuscitation Status Routine Resus Stat 01/08/19 08:26 Ordered Medication Orders Calcium Carbonate/Glycine (Tums) 1,000 mg PO Q2H PRN PRN Reason: Indigestion Diphenhydramine HCl (Benadryl) 25 mg IVPUSH Q6H PRN PRN Reason: pruritis Ephedrine Sulfate (Ephedrine Sulfate) 5 mg IVPUSH ASDIRECTED PRN PRN Reason: Hypotension Last Admin: 01/08/19 15:17 Dose: 5 mg Admin: 01/08/19 15:09 Dose: 5 mg Admin: 01/08/19 15:04 Dose: 5 mg Fentanyl (Sublimaze) 100 mcg EPIDUR Q3H PRN PRN Reason: Pain Last Admin: 01/08/19 14:26 Dose: 100 mcg Fentanyl/Bupivacaine HCl (Fentanyl/Bupivacaine/Ns 2 Mcg-0.125% 100 Ml) 0 ml EPIDUR CONTINUOUS PRN PRN Reason: Pain Last Admin: 01/08/19 14:25 Dose: 100 ml Lactated Ringer's (Ringers, Lactated) 1,000 mls @ 100 mls/hr IV ASDIRECTED RON Last Admin: 01/08/19 15:00 Dose: 999 mls/hr Infusion: 01/08/19 15:00 Dose: 999 mls/hr Admin: 01/08/19 14:15 Dose: 999 mls/hr Infusion: 01/08/19 14:15 Dose: 999 mls/hr Admin: 01/08/19 13:30 Dose: 999 mls/hr Infusion: 01/08/19 13:30 Dose: 100 mls/hr Admin: 01/08/19 11:07 Dose: 100 mls/hr Oxytocin/Lactated Ringer's (Pitocin In Lr 10 Units/1,000 Ml) 10 unit in 1,000 mls @ 12 mls/hr IV TITRATE RON; Protocol Last Titration: 01/08/19 12:40 Dose: 10 munits/min, 60 mls/hr Titration: 01/08/19 12:20 Dose: 8 munits/min, 48 mls/hr Titration: 01/08/19 12:00 Dose: 6 munits/min, 36 mls/hr Titration: 01/08/19 11:24 Dose: 4 munits/min, 24 mls/hr Admin: 01/08/19 11:09 Dose: 2 munits/min, 12 mls/hr Oxytocin/Lactated Ringer's (Pitocin In Lr 10 Units/1,000 Ml) 10 unit in 1,000 mls @ 500 mls/hr IV .CONTINUOUS RON Nalbuphine HCl (Nubain) 10 mg IVPUSH Q2H PRN PRN Reason: Pain Ondansetron HCl (Zofran) 4 mg IVPUSH Q4H PRN PRN Reason: Nausea/Vomiting Sodium Chloride (Saline Flush) 10 ml FLUSH ASDIRECTED PRN PRN Reason: Keep Vein Open Assessment/Plan Comment:: Agree with student's dictated H and P.
[2019-01-08] MEDS: Lactated Ringers 1,000 ML IV SCH ×5 (11:07→18:22)
[2019-01-08] MEDS: Oxytocin/Lactated Ringers 10 UNIT/1,000 ML BAG IV SCH (11:09)
[2019-01-08] MEDS ORDERED: Lidocaine 1% 50 ML MDV INJECT ONE (12:00)
[2019-01-08] MEDS ORDERED: diphenhydrAMINE 50 MG/ML SDV IVPUSH PRN (12:42)
[2019-01-08] MEDS ORDERED: fentaNYL 100 MCG/2 ML SDV EPIDUR PRN (12:42)
--- NOTE | 2019-01-08 12:42 | PCM.PREANE ---
Preanesthetic Assessment - Anesthesia/Transfusion/Family Hx Anesthesia History: Prior Anesthesia Without Reaction Transfusion History: No Prior Transfusion(s) - Review of Systems General: No Symptoms Pulmonary: No Symptoms Cardiovascular: No Symptoms Gastrointestinal: No Symptoms Neurological: No Symptoms Other: Reports: None - Physical Assessment NPO Status Date: 01/08/19 NPO Status Time: 12:33 Vital Signs: Last Vital Signs Temp 99.1 F 01/08/19 07:23 Pulse 114 H 01/08/19 07:23 Resp 16 01/08/19 07:23 BP 146/98 H 01/08/19 07:23 Pulse Ox 97 01/08/19 07:23 Height: 1.63 m Weight: 119.884 kg ASA Class: 3 Mental Status: Alert & Oriented x3 Airway Class: Mallampati = 2 Dentition: Reports: Normal Dentition Thyro-Mental Finger Breadths: 3 Mouth Opening Finger Breadths: 3 ROM/Head Extension: Full Lungs: Clear to Auscultation, Normal Respiratory Effort Cardiovascular: Regular Rate, Regular Rhythm - Lab Values: Laboratory Last Values WBC 11.74 K/mm3 (3.98-10.04) H 01/08/19 09:03 RBC 4.21 M/mm3 (3.98-5.22) 01/08/19 09:03 Hgb 11.5 gm/dl (11.2-15.7) 01/08/19 09:03 Hct 35.7 % (34.1-44.9) 01/08/19 09:03 MCV 84.8 fl (79.4-94.8) 01/08/19 09:03 MCH 27.3 pg (25.6-32.2) 01/08/19 09:03 MCHC 32.2 g/dl (32.2-35.5) 01/08/19 09:03 RDW Std Deviation 56.4 fL (36.4-46.3) H 01/08/19 09:03 Plt Count 245 K/mm3 (182-369) 01/08/19 09:03 MPV 10.1 fl (9.4-12.3) 01/08/19 09:03 Neut % (Auto) 76.2 % (34.0-71.1) H 01/08/19 09:03 Lymph % (Auto) 16.6 % (19.3-51.7) L 01/08/19 09:03 [place] % (Auto) 5.1 % (4.7-12.5) 01/08/19 09:03 Eos % (Auto) 1.1 (0.7-5.8) 01/08/19 09:03 Baso % (Auto) 0.2 % (0.1-1.2) 01/08/19 09:03 Neut # (Auto) 8.95 K/mm3 (1.56-6.13) H 01/08/19 09:03 Lymph # (Auto) 1.95 K/mm3 (1.18-3.74) 01/08/19 09:03 [place] # (Auto) 0.60 K/mm3 (0.24-0.36) H 01/08/19 09:03 Eos # (Auto) 0.13 K/mm3 (0.04-0.36) 01/08/19 09:03 Baso # (Auto) 0.02 K/mm3 (0.01-0.08) 01/08/19 09:03 BUN 12 mg/dL (7-18) 01/08/19 09:03 Creatinine 0.6 mg/dL (0.55-1.02) 01/08/19 09:03 Est Cr Clr Drug Dosing 111.93 mL/min 01/08/19 09:03 Estimated GFR (MDRD) > 60 mL/min (>60) 01/08/19 09:03 Uric Acid 6.9 mg/dL (2.6-6.0) H 01/08/19 09:03 AST 13 U/L (15-37) L 01/08/19 09:03 ALT 18 U/L (14-59) 01/08/19 09:03 Lactate Dehydrogenase 201 U/L (81-234) 01/08/19 09:03 Urine Color Dark yellow (Yellow) 01/08/19 07:50 Urine Appearance Clear (Clear) 01/08/19 07:50 Urine pH 5.5 (5.0-8.0) 01/08/19 07:50 Ur Specific [place] > or = 1.030 (1.005-1.030) 01/08/19 07:50 Urine Protein 2+ (Negative) H 01/08/19 07:50 Urine Glucose (UA) Negative (Negative) 01/08/19 07:50 Urine Ketones Trace (Negative) H 01/08/19 07:50 Urine Occult Blood Trace-lysed (Negative) H 01/08/19 07:50 Urine Nitrite Negative (Negative) 01/08/19 07:50 Urine Bilirubin 1+ (Negative) H 01/08/19 07:50 Urine Urobilinogen 0.2 (0.2-1.0) 01/08/19 07:50 Ur Leukocyte Esterase Trace (Negative) H 01/08/19 07:50 Urine RBC 5-10 /hpf (0-5) H 01/08/19 07:50 Urine WBC 20-30 /hpf (0-5) H 01/08/19 07:50 Ur Epithelial Cells 10-20 /hpf (0-5) H 01/08/19 07:50 Urine Bacteria Many /hpf (FEW) H 01/08/19 07:50 Urine Mucus Many /hpf (FEW) H 01/08/19 07:50 - Allergies Allergies/Adverse Reactions: Allergies Allergy/AdvReac Type Severity Reaction Status Date / Time amoxicillin Allergy Hives Verified 01/08/19 09:06 - Acknowledgements Anesthesia Type Planned: Epidural Pt an Appropriate Candidate for the Planned Anesthesia: Yes Alternatives and Risks of Anesthesia Discussed w Pt/Guardian: Yes Pt/Guardian Understands and Agrees with Anesthesia Plan: Yes PreAnesthesia Questionnaire - Past Health History Medical/Surgical History: Denies Medical/Surgical History HEENT History: Reports: None Cardiovascular History: Reports: None, Hypertension ( induced) Respiratory History: Reports: SOB Gastrointestinal History: Reports: GERD Genitourinary History: Reports: Renal Calculus 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 History: Reports: None, : 1 Para: 0 Other OB/BYN History: preeclampsia Musculoskeletal History: Reports: None Neurological History: Reports: None Psychiatric History: Reports: None Endocrine/Metabolic History: Reports: Obesity/BMI 30+, Other (See Below) Other Endocrine/Metabolic History: pituitary gland tumor Hematologic History: Reports: Anemia Immunologic History: Reports: None Oncologic (Cancer) History: Reports: None Dermatologic History: Reports: None - Past Surgical History Head Surgeries/Procedures: Reports: None HEENT Surgical History: Reports: None Cardiovascular Surgical History: Reports: None Respiratory Surgical History: Reports: None GI Surgical History: Reports: None Female Surgical History: Reports: Breast Implant, LEEP Endocrine Surgical History: Reports: None Neurological Surgical History: Reports: None Musculoskeletal Surgical History: Reports: None, Other (See Below) Other Musculoskeletal Surgeries/Procedures:: left collar bone surgery, plate placed Oncologic Surgical History: Reports: None Dermatological Surgical History: Reports: None - SUBSTANCE USE Smoking Status *Q: Never Smoker Tobacco Use Within Last Twelve Months: No Second Hand Smoke Exposure: No Recreational Drug Use History: No - HOME MEDS Home Medications: Home Meds Ferrous Sulfate [Iron] 325 mg PO DAILY 01/08/19 [History] Omeprazole Magnesium [Prilosec Otc] 40 mg PO DAILY 01/08/19 [History] No122/Iron/Folic Acid [ Multi Tablet] 1 each PO DAILY 01/08/19 [History] - CURRENT (IN HOUSE) MEDS Current Meds: Current Medications Calcium Carbonate/Glycine (Tums) 1,000 mg PO Q2H PRN PRN Reason: Indigestion Lactated Ringer's (Ringers, Lactated) 1,000 mls @ 100 mls/hr IV ASDIRECTED RON Last Admin: 01/08/19 11:07 Dose: 100 mls/hr Oxytocin/Lactated Ringer's (Pitocin In Lr 10 Units/1,000 Ml) 10 unit in 1,000 mls @ 12 mls/hr IV TITRATE RON; Protocol Last Titration: 01/08/19 12:20 Dose: 8 munits/min, 48 mls/hr Oxytocin/Lactated Ringer's (Pitocin In Lr 10 Units/1,000 Ml) 10 unit in 1,000 mls @ 500 mls/hr IV .CONTINUOUS RON Nalbuphine HCl (Nubain) 10 mg IVPUSH Q2H PRN PRN Reason: Pain Ondansetron HCl (Zofran) 4 mg IVPUSH Q4H PRN PRN Reason: Nausea/Vomiting Sodium Chloride (Saline Flush) 10 ml FLUSH ASDIRECTED PRN PRN Reason: Keep Vein Open Discontinued Medications Lidocaine HCl (Xylocaine 1%) 50 ml INJECT ONETIME ONE Stop: 01/08/19 12:01
[2019-01-08] MEDS: Bupivacaine/fentaNYL/NS 100 ML Bag EPIDUR PRN ×2 (14:25→21:17)
[2019-01-08] MEDS ORDERED: Sodium Chloride 0.9% 10 ML ONE (14:56)
[2019-01-08] MEDS: ePHEDrine 50 MG/ML SDV IVPUSH PRN ×3 (15:04→15:17)
[2019-01-09] MEDS: Oxytocin/Lactated Ringers 10 UNIT/1,000 ML BAG IV SCH (01:18)
[2019-01-09] MEDS: Lactated Ringers 1,000 ML IV SCH (01:24)
[2019-01-09] MEDS ORDERED: Lidocaine 1% 50 ML MDV ONE (05:23)
[2019-01-09] MEDS ORDERED: Bupivacaine 0.25% 10 ML SDV ONE (06:00)
[2019-01-09] MEDS ORDERED: Phenylephrine/Normal Saline 100 MCG/ML 10 ML Syringe ONE (06:00)
--- NOTE | 2019-01-09 06:10 | PCM.SN ---
- Free Text/Narrative Note: Delivery note: Yvon is a 38 showed 3 para 0020 white female at 37-0/7 weeks gestational age with an EDWARDO of 01/29/2017 is admitted for medical induction of labor due to gestational hypertension. The induction was started with artificial rupture membranes. Patient is approximately 2 cm, 95% effaced, cephalic presentation mid position very soft. She ended up getting augmented with Pitocin. She made slow but steady progress to complete cervical dilation at approximately 0230 hrs. on 01/09/2019. She pushed for approximately 3 hours and at 05 27 is noted to be having significant variable decelerations and because of this decision was made to proceed to vacuum extraction delivery. Vacuum extraction was discussed with patient. The procedure, risks, benefits, limitations and alternatives including section were discussed. Decision made to proceed with vacuum extraction delivery. Vacuum extractor was applied and course of one contraction the patient delivered the baby. Midline episiotomy was made to facilitate delivery. There were no problems. The baby delivered in a occiput anterior position at 0527 hrs. And was nuchal cord 2 which was loose and was reduced over the baby's head. The baby was a female named Piedad Mendez, weight 3670 g (8 pounds 1.5 ounces), had Apgars of 6 and 9 and length of 21.0 inches. Shoulders delivered without incident. The baby was placed on mom's abdomen. Pitocin at 500 mL an hour was then started to facilitate an increase in uterine tone and decreased likelihood of bleeding. Cord was allowed to pulsate for 1-2 minutes and was clamped 2 and cut by the baby's father. The umbilical cord had 3 vessels. Cord blood was obtained. Episiotomy was repaired with 3-0 Monocryl after infiltration with lidocaine 1% 10 mL total. She tolerated this well. Patient plans to breast-feed. The patient's blood loss was 200 mL. Condition: Good
[2019-01-09] MEDS ORDERED: Benzocaine/Menthol 20%-0.5% Spray 56 GM Canister TOP PRN (06:24)
[2019-01-09] MEDS ORDERED: Witch Hazel Medicated Pads 40/Jar TOP PRN (06:24)
[2019-01-09] MEDS: Ibuprofen 600 MG Tab PO PRN ×4 (06:30→21:03)
[2019-01-09] MEDS ORDERED: Labetalol 100 MG Tab PO ONE (10:15)
[2019-01-09] MEDS: Prenatal Multivitamin with Calcium/Folic Acid/Iron Tab PO SCH (10:22)
[2019-01-09] MEDS: Docusate Sodium 100 MG Cap PO PRN (10:24)
--- NOTE | 2019-01-09 11:25 | PCM48HPAN ---
Post Anesthesia Note - EVALUATION WITHIN 48HRS OF ANESTHETIC Vital Signs in Normal Range: Yes Patient Participated in Evaluation: Yes Respiratory Function Stable: Yes Airway Patent: Yes Cardiovascular Function Stable: Yes Hydration Status Stable: Yes Pain Control Satisfactory: Yes Nausea and Vomiting Control Satisfactory: Yes Mental Status Recovered: Yes Vital Signs: Last Vital Signs Temp 37.3 C 01/08/19 07:23 Pulse 92 01/09/19 10:23 Resp 16 01/08/19 07:23 BP 161/100 H 01/09/19 10:23 Pulse Ox 97 01/08/19 07:23 - COMMENTS/OBSERVATIONS Free Text/Narrative:: no anesthesia complications noted
[2019-01-09] MEDS: Acetaminophen 325 MG Tab PO PRN ×2 (12:57→19:00)
[2019-01-09] MEDS: Labetalol 100 MG Tab PO SCH ×2 (15:41→21:58)
[2019-01-09] MEDS ORDERED: Labetalol 100 MG Tab PO STA (21:23)
[2019-01-10] MEDS: Ibuprofen 600 MG Tab PO PRN ×4 (03:23→19:45)
--- NOTE | 2019-01-10 07:36 | PCM.SN ---
- Free Text/Narrative Note: day #1 note: Patient is doing well in the period. Minimal lochia, voiding well, ambulated without problems. Nursing without concerns. Patient is afebrile, vital signs are stable-now patient is on labetalol 200 mg by mouth 3 times a day. Prior to starting had blood pressures 170s over 105-110 range. Abdomen is flat, soft, uterus is below the umbilicus and is firm and nontender. Legs are nontender. Assessment: 1. recovery going well. 2. Gestational hypertension?under good control with labetalol Plan: Routine care. Patient be discharged home within the next 24-48 hours. Continue labetalol.
[2019-01-10] MEDS: Docusate Sodium 100 MG Cap PO PRN ×2 (07:46→21:05)
[2019-01-10] MEDS: Prenatal Multivitamin with Calcium/Folic Acid/Iron Tab PO SCH (11:23)
[2019-01-10] MEDS: Labetalol 100 MG Tab PO SCH ×3 (11:23→21:05)
[2019-01-11] MEDS: Ibuprofen 600 MG Tab PO PRN (02:20)
--- NOTE | 2019-01-11 05:55 | PCM.DCSUM1 ---
Discharge Summary - Hospital Course Free Text/Narrative:: Yvon is a 38 showed 3 para 0020 white female at 37-0/7 weeks gestational age with an EDWARDO of 01[birth year]29/2017 is admitted for medical induction of labor due to gestational hypertension. The induction was started with artificial rupture membranes. Patient is approximately 2 cm, 95% effaced, cephalic presentation mid position very soft. She ended up getting augmented with Pitocin. She made slow but steady progress to complete cervical dilation at approximately 0230 hrs. on 01/09/2019. She pushed for approximately 3 hours and at 05 27 is noted to be having significant variable decelerations and because of this decision was made to proceed to vacuum extraction delivery. Vacuum extraction was discussed with patient. The procedure, risks, benefits, limitations and alternatives including section were discussed. Decision made to proceed with vacuum extraction delivery. Vacuum extractor was applied and course of one contraction the patient delivered the baby. Midline episiotomy was made to facilitate delivery. There were no problems. The baby delivered in a occiput anterior position at 0527 hrs. And was nuchal cord 2 which was loose and was reduced over the baby's head. The baby was a female named Piedad Mendez, weight 3670 g (8 pounds 1.5 ounces), had Apgars of 6 and 9 and length of 21.0 inches. Shoulders delivered without incident. The baby was placed on mom's abdomen. Pitocin at 500 mL an hour was then started to facilitate an increase in uterine tone and decreased likelihood of bleeding. Cord was allowed to pulsate for 1-2 minutes and was clamped 2 and cut by the baby's father. The umbilical cord had 3 vessels. Cord blood was obtained. Episiotomy was repaired with 3-0 Monocryl after infiltration with lidocaine 1% 10 mL total. She tolerated this well. Patient plans to breast-feed. The patient's blood loss was 200 mL. patient is done well. She is having no symptoms. Minimal lochia noted. She is voiding well and is ambulating without concerns. She is breast- feeding. Blood pressures have been high normal. She is been started on labetalol 200 mg by mouth 3 times a day. With this blood pressures are manageable. She is aware that she must follow up soon in the clinic with Dr. Servando Pompa. Condition: Good Diagnosis: Stroke: No - Discharge Data Discharge Date: 01/11/19 Discharge Disposition: Home, Self-Care 01 Condition: Good - Referral to Home Health Primary Care Physician: Servando Pompa MD - Patient Instructions Diet: Regular Diet as Tolerated (Nursing diet was increased calories calcium is recommended) Activity: As Tolerated (No intercourse or tampons until bleeding resolves) Driving: May Drive Today Showering/Bathing: May Shower (May take a bath) Notify Provider of: Fever, Increased Pain, Swelling and Redness, Nausea and/or Vomiting - Discharge Plan Home Medications: Home Meds Ferrous Sulfate [Iron] 325 mg PO DAILY 01/08/19 [History] No122/Iron/Folic Acid [ Multi Tablet] 1 each PO DAILY 01/08/19 [History] Acetaminophen [Tylenol] 650 mg PO Q4H PRN tablet 01/11/19 [Rx] Ibuprofen [Motrin] 600 mg PO Q4H PRN tablet 01/11/19 [Rx] Labetalol [Normodyne] 200 mg PO TID tablet 01/11/19 [Rx] Referrals: Servando Pompa MD [Primary Care Provider] - (Return to clinic within one week Dr. Pompa.) - Discharge Summary/Plan Comment DC Time >30 min.: Yes Discharge Summary/Plan Comment: Discharge instructions: 1. Discharge home 2. Diet, activity and follow-up discussed with patient. Recommend nursing diet with increased calories and calcium. 3. Precautions given concern increased pain, bleeding, temperature, signs/ symptoms of DVT/PE. 4. Medications per home medication was printed, discussed with and given to the patient. 5. Return to clinic-Dr. Pompa[facility] in 1 week. Diagnosis: 1. Term -delivered 2. Gestational hypertension Condition: Good - Patient Data Vitals - Most Recent: Last Vital Signs Temp 36.4 C 01/10/19 16:50 Pulse 89 01/11/19 03:00 Resp 14 01/11/19 03:00 BP 140/74 01/11/19 03:00 Pulse Ox 89 L 01/11/19 03:00 Weight - Most Recent: 119.884 kg I&O - Last 24 hours: Intake & Output 01/10/19 01/10/19 01/11/19 14:59 22:59 06:59 Intake Total 440 Balance 440 Lab Results - Last 24 hrs: Laboratory Results - last 24 hr 01/08/19 Range/Units 09:03 RPR Non-reactive (NONREACTIVE) Med Orders - Current: Current Medications Acetaminophen (Tylenol) 650 mg PO Q4H PRN PRN Reason: mild pain or fever Last Admin: 01/09/19 19:00 Dose: 650 mg Benzocaine/Menthol (Dermoplast Pain Relief [place]) 0 gm TOP ASDIRECTED PRN PRN Reason: Perineal Comfort Measure Last Admin: 01/09/19 10:28 Dose: 1 canister Docusate Sodium (Colace) 100 mg PO BID PRN PRN Reason: Constipation Last Admin: 01/10/19 21:05 Dose: 100 mg Ibuprofen (Motrin) 600 mg PO Q4H PRN PRN Reason: Mild pain or fever Last Admin: 01/10/19 19:45 Dose: 600 mg Labetalol HCl (Normodyne) 200 mg PO TID RON Last Admin: 01/10/19 21:05 Dose: 200 mg Prenat Multivit/Child Development Director/Iron/Folic Ac ( Plus Iron) 1 each PO DAILY RON Last Admin: 01/10/19 11:23 Dose: 1 each Witch Pauline (Tucks) 1 pad TOP ASDIRECTED PRN PRN Reason: Pain Last Admin: 01/09/19 10:27 Dose: 1 tub Discontinued Medications Bupivacaine HCl (Sensorcaine-Mpf 0.25%) 20 ml .ROUTE .STK-MED ONE Stop: 01/09/19 06:01 Calcium Carbonate/Glycine (Tums) 1,000 mg PO Q2H PRN PRN Reason: Indigestion Diphenhydramine HCl (Benadryl) 25 mg IVPUSH Q6H PRN PRN Reason: pruritis Ephedrine Sulfate (Ephedrine Sulfate) 5 mg IVPUSH ASDIRECTED PRN PRN Reason: Hypotension Last Admin: 01/08/19 15:17 Dose: 5 mg Fentanyl (Sublimaze) 100 mcg EPIDUR Q3H PRN PRN Reason: Pain Last Admin: 01/08/19 14:26 Dose: 100 mcg Fentanyl/Bupivacaine HCl (Fentanyl/Bupivacaine/Ns 2 Mcg-0.125% 100 Ml) 0 ml EPIDUR CONTINUOUS PRN PRN Reason: Pain Last Admin: 01/08/19 21:17 Dose: 100 ml Lactated Ringer's (Ringers, Lactated) 1,000 mls @ 100 mls/hr IV ASDIRECTED RON Last Admin: 01/09/19 01:24 Dose: 100 mls/hr Oxytocin/Lactated Ringer's (Pitocin In Lr 10 Units/1,000 Ml) 10 unit in 1,000 mls @ 12 mls/hr IV TITRATE RON; Protocol Last Titration: 01/09/19 06:00 Dose: 500 mls/hr Oxytocin/Lactated Ringer's (Pitocin In Lr 10 Units/1,000 Ml) 10 unit in 1,000 mls @ 500 mls/hr IV .CONTINUOUS RON Sodium Chloride (Normal Saline) Confirm Administered Dose 10 mls @ as directed .ROUTE .STK-MED ONE Stop: 01/08/19 14:57 Last Admin: 01/08/19 15:06 Dose: Not Given Labetalol HCl (Normodyne) 100 mg PO TID [facility] Last Admin: 01/09/19 21:58 Dose: Not Given Labetalol HCl (Normodyne) 100 mg PO ONETIME ONE Stop: 01/09/19 10:16 Last Admin: 01/09/19 10:23 Dose: 100 mg Labetalol HCl (Normodyne) 200 mg PO ONETIME STA Stop: 01/09/19 21:24 Last Admin: 01/09/19 21:02 Dose: 200 mg Lidocaine HCl (Xylocaine 1%) 50 ml INJECT ONETIME ONE Stop: 01/08/19 12:01 Last Admin: 01/09/19 05:30 Dose: 50 ml Lidocaine HCl (Xylocaine 1%) Confirm Administered Dose 50 ml .ROUTE .STK-MED ONE Stop: 01/09/19 05:24 Last Admin: 01/09/19 21:57 Dose: Not Given Nalbuphine HCl (Nubain) 10 mg IVPUSH Q2H PRN PRN Reason: Pain Ondansetron HCl (Zofran) 4 mg IVPUSH Q4H PRN PRN Reason: Nausea/Vomiting Phenylephrine HCl (Phenylephrine In Ns 100 Mcg/Ml) 1 mg .ROUTE .STK-MED ONE Stop: 01/09/19 06:01 Sodium Chloride (Saline Flush) 10 ml FLUSH ASDIRECTED PRN PRN Reason: Keep Vein Open
[2019-01-11] MEDS: Prenatal Multivitamin with Calcium/Folic Acid/Iron Tab PO SCH (08:14)
[2019-01-11] MEDS: Labetalol 100 MG Tab PO SCH (08:14)
== END 2019-01-11 11:25 | disposition home or self-care (01) | DRG 807 ==
LOC: JD.OB 05:27 → OBSVTOIN 01-09 05:27
PROVIDERS: ADMIT Obstetrics & Gynecology; ATTEND Obstetrics & Gynecology
PROC: 10D07Z6 Extraction of Products of Conception, Vacuum, Via Natural or Artificial Opening (ICD-10-PCS; principal; 2019-01-09)
PROC: 0W8NXZZ Division of Female Perineum, External Approach (ICD-10-PCS; 2019-01-09)
DX: O13.4 Gestational [pregnancy-induced] hypertension without significant proteinuria, complicating childbirth (principal); Z37.0 Single live birth; O76 Abnormality in fetal heart rate and rhythm complicating labor and delivery; O69.81X0 Labor and delivery complicated by cord around neck, without compression, not applicable or unspecified; O99.02 Anemia complicating childbirth; D64.9 Anemia, unspecified; D35.2 Benign neoplasm of pituitary gland; Z3A.37 37 weeks gestation of pregnancy; Z88.0 Allergy status to penicillin
CPT/HCPCS: 36415; 51701; 51702; 59025; 59409; 81001; 82565; 83615; 84450; 84460; 84520; 84550; 85025; 86592; A9270-GY; J2001; J2370; J2590; J3010; J3490; J7120

== ENCOUNTER 2019-06-26 16:27 | Emergency (ER) | payer OTHER, BC ==
--- NOTE | 2019-06-26 16:56 | EDM.PDOC ---
ED HPI GENERAL MEDICAL PROBLEM - General Chief Complaint: General Stated Complaint: VOMITING Time Seen by Provider: 06/26/19 16:56 - History of Present Illness INITIAL COMMENTS - FREE TEXT/NARRATIVE: 39-year-old female presents the emergency room with nausea and vomiting. Patient awoke early this morning with this she is vomited 4-6 times today she feels really poorly. She denies fevers or chills she does not have a cough or any other concerning symptoms at this point. She has not developed any diarrhea yet, no significant abdominal discomfort except just before and after vomiting. She has a significant past medical history for GERD and dyspepsia but these are not issues for her at this time. She has had a clavicle fracture in the past she denies states she has been using her control as directed - Related Data Allergies Allergy/AdvReac Type Severity Reaction Status Date / Time amoxicillin Allergy Hives Verified 01/08/19 09:06 Home Meds: Home Meds Omeprazole 20 mg PO ONETIME 06/26/19 [History] Past Medical History - Past Health History Medical/Surgical History: Denies Medical/Surgical History HEENT History: Reports: None Cardiovascular History: Reports: None, Hypertension Respiratory History: Reports: SOB Gastrointestinal History: Reports: GERD Genitourinary History: Reports: Renal Calculus BLANKBOOK FORWARDER History: Reports: None, Other BLANKBOOK FORWARDER History: preeclampsia Musculoskeletal History: Reports: None Neurological History: Reports: None Psychiatric History: Reports: None Endocrine/Metabolic History: Reports: Obesity/BMI 30+, Other (See Below) Other Endocrine/Metabolic History: pituitary gland tumor Hematologic History: Reports: Anemia Immunologic History: Reports: None Oncologic (Cancer) History: Reports: None Dermatologic History: Reports: None - Past Surgical History Head Surgeries/Procedures: Reports: None HEENT Surgical History: Reports: None Cardiovascular Surgical History: Reports: None Respiratory Surgical History: Reports: None GI Surgical History: Reports: None Female Surgical History: Reports: Breast Implant, LEEP Endocrine Surgical History: Reports: None Neurological Surgical History: Reports: None Musculoskeletal Surgical History: Reports: None, Other (See Below) Other Musculoskeletal Surgeries/Procedures:: left collar bone surgery, plate placed Oncologic Surgical History: Reports: None Dermatological Surgical History: Reports: None Social & Family History - Family History Family Medical History: Noncontributory - Tobacco Use Smoking Status *Q: Never Smoker - Caffeine Use Caffeine Use: Reports: Coffee, Energy Drinks, Soda, Tea - Recreational Drug Use Recreational Drug Use: No - Living Situation & Occupation Living situation: Reports: Single Occupation: Employed ED ROS GENERAL - Review of Systems Review Of Systems: See Below Constitutional: Reports: Weakness. Denies: Fever, Chills, Night Sweats, Diaphoresis HEENT: Reports: No Symptoms Respiratory: Reports: No Symptoms Cardiovascular: Reports: No Symptoms Endocrine: Reports: No Symptoms GI/Abdominal: Reports: Abdominal Pain (Just before and after vomiting otherwise no significant discomfort) : Reports: No Symptoms Musculoskeletal: Reports: No Symptoms Neurological: Reports: No Symptoms ED EXAM, GENERAL - Physical Exam Exam: See Below Exam Limited By: No Limitations General Appearance: Mild Distress (Significant nausea) Head: Atraumatic, Normocephalic Neck: Normal Inspection, Supple, Non-Tender, Full Range of Motion Respiratory/Chest: No Respiratory Distress, Lungs Clear, Normal Breath Sounds Cardiovascular: Regular Rate, Rhythm, No Edema, No Murmur GI/Abdominal: Normal Bowel Sounds, Soft, Non-Tender Back Exam: Normal Inspection. No: CVA Tenderness (L), CVA Tenderness (R) Extremities: Normal Inspection, No Pedal Edema Neurological: Alert, Oriented, Normal Cognition Course - Vital Signs Last Recorded V/S: Last Vital Signs Temp 35.8 C L 06/26/19 16:35 Pulse 96 06/26/19 16:35 Resp 20 06/26/19 16:35 BP 138/116 H 06/26/19 16:35 Pulse Ox 99 06/26/19 16:35 - Orders/Labs/Meds Labs: Laboratory Tests 06/26/19 06/26/19 06/26/19 Range/Units 18:00 18:00 18:54 WBC 14.72 H (3.98-10.04) K/mm3 RBC 6.38 H (3.98-5.22) M/mm3 Hgb 17.5 H D (11.2-15.7) gm/dl Hct 53.3 H (34.1-44.9) % MCV 83.5 (79.4-94.8) fl MCH 27.4 (25.6-32.2) pg MCHC 32.8 (32.2-35.5) g/dl RDW Std Deviation 49.0 H (36.4-46.3) fL Plt Count 391 H D (182-369) K/mm3 MPV 9.4 (9.4-12.3) fl Neut % (Auto) 88.5 H (34.0-71.1) % Lymph % (Auto) 9.4 L (19.3-51.7) % [place] % (Auto) 1.7 L (4.7-12.5) % Eos % (Auto) 0.2 L (0.7-5.8) Baso % (Auto) 0.1 (0.1-1.2) % Neut # (Auto) 13.03 H (1.56-6.13) K/mm3 Lymph # (Auto) 1.38 (1.18-3.74) K/mm3 [place] # (Auto) 0.25 (0.24-0.36) K/mm3 Eos # (Auto) 0.03 L (0.04-0.36) K/mm3 Baso # (Auto) 0.01 (0.01-0.08) K/mm3 Manual Slide Review Abnormal smear Sodium 140 (136-145) mEq/L Potassium 4.0 (3.5-5.1) mEq/L Chloride 103 (98-107) mEq/L Carbon Dioxide 26 (21-32) mEq/L Anion Gap 15.0 (5-15) BUN 13 (7-18) mg/dL Creatinine 0.7 (0.55-1.02) mg/dL Est Cr Clr Drug Dosing 95.02 mL/min Estimated GFR (MDRD) > 60 (>60) mL/min BUN/Creatinine Ratio 18.6 H (14-18) Glucose 141 H (74-106) mg/dL Calcium 9.5 (8.5-10.1) mg/dL Total Bilirubin 0.5 (0.2-1.0) mg/dL AST 12 L (15-37) U/L ALT 21 (14-59) U/L Alkaline Phosphatase 85 (46-116) U/L Total Protein 7.8 (6.4-8.2) g/dl Albumin 3.5 (3.4-5.0) g/dl Globulin 4.3 gm/dL Albumin/Globulin Ratio 0.8 L (1-2) Lipase 69 L (73-393) U/L Urine Color Dark yellow (Yellow) Urine Appearance Slt cloudy H (Clear) Urine pH 5.5 (5.0-8.0) Ur Specific [place] > or = 1.030 (1.005-1.030) Urine Protein 2+ H (Negative) Urine Glucose (UA) Negative (Negative) Urine Ketones Negative (Negative) Urine Occult Blood Negative (Negative) Urine Nitrite Negative (Negative) Urine Bilirubin 2+ H (Negative) Urine Urobilinogen 0.2 (0.2-1.0) Ur Leukocyte Esterase Negative (Negative) Urine RBC Not seen (0-5) /hpf Urine WBC 0-5 (0-5) /hpf Ur Squamous Epith Cells 50-75 H (0-5) /hpf Amorphous Sediment Moderate H (NOT SEEN) /hpf Urine Bacteria Few (FEW) /hpf Urine Mucus Many H (FEW) /hpf Urine HCG, Qual (NEGATIVE) 06/26/19 Range/Units 18:54 WBC (3.98-10.04) K/mm3 RBC (3.98-5.22) M/mm3 Hgb (11.2-15.7) gm/dl Hct (34.1-44.9) % MCV (79.4-94.8) fl MCH (25.6-32.2) pg MCHC (32.2-35.5) g/dl RDW Std Deviation (36.4-46.3) fL Plt Count (182-369) K/mm3 MPV (9.4-12.3) fl Neut % (Auto) (34.0-71.1) % Lymph % (Auto) (19.3-51.7) % [place] % (Auto) (4.7-12.5) % Eos % (Auto) (0.7-5.8) Baso % (Auto) (0.1-1.2) % Neut # (Auto) (1.56-6.13) K/mm3 Lymph # (Auto) (1.18-3.74) K/mm3 [place] # (Auto) (0.24-0.36) K/mm3 Eos # (Auto) (0.04-0.36) K/mm3 Baso # (Auto) (0.01-0.08) K/mm3 Manual Slide Review Sodium (136-145) mEq/L Potassium (3.5-5.1) mEq/L Chloride (98-107) mEq/L Carbon Dioxide (21-32) mEq/L Anion Gap (5-15) BUN (7-18) mg/dL Creatinine (0.55-1.02) mg/dL Est Cr Clr Drug Dosing mL/min Estimated GFR (MDRD) (>60) mL/min BUN/Creatinine Ratio (14-18) Glucose (74-106) mg/dL Calcium (8.5-10.1) mg/dL Total Bilirubin (0.2-1.0) mg/dL AST (15-37) U/L ALT (14-59) U/L Alkaline Phosphatase (46-116) U/L Total Protein (6.4-8.2) g/dl Albumin (3.4-5.0) g/dl Globulin gm/dL Albumin/Globulin Ratio (1-2) Lipase (73-393) U/L Urine Color (Yellow) Urine Appearance (Clear) Urine pH (5.0-8.0) Ur Specific [place] (1.005-1.030) Urine Protein (Negative) Urine Glucose (UA) (Negative) Urine Ketones (Negative) Urine Occult Blood (Negative) Urine Nitrite (Negative) Urine Bilirubin (Negative) Urine Urobilinogen (0.2-1.0) Ur Leukocyte Esterase (Negative) Urine RBC (0-5) /hpf Urine WBC (0-5) /hpf Ur Squamous Epith Cells (0-5) /hpf Amorphous Sediment (NOT SEEN) /hpf Urine Bacteria (FEW) /hpf Urine Mucus (FEW) /hpf Urine HCG, Qual Negative (NEGATIVE) Meds: Medications Discontinued Medications Generic Name Dose Route Start Last Admin Trade Name Freq PRN Reason Stop Dose Admin Lactated Ringer's 1,000 mls @ 999 mls/hr 06/26/19 17:05 06/26/19 18:07 Ringers, Lactated IV 06/26/19 18:05 999 mls/hr .BOLUS ONE Administration Ondansetron HCl 4 mg 06/26/19 17:05 06/26/19 18:08 Zofran IVPUSH 06/26/19 17:06 4 mg ONETIME ONE Administration - Re-Assessments/Exams Free Text/Narrative Re-Assessment/Exam: 06/26/19 17:17 Awaiting labs we will give her a liter of LR and some Zofran see if that makes her feel better. 06/26/19 18:31 Chemistries still pending. Urinalysis not yet obtained but she thinks she can go now. Patient is received Zofran and feels much better we will give her some water and see how she does with this. 06/26/19 18:38 Awaiting chemistries and urinalysis the patient will be discharged with Zofran from the machine out in the waiting room #10 1 every 4-6 hours as needed 06/26/19 19:19 Patient continues to do well her chemistries look okay CBC shows a mildly elevated white count and her RBCs are up a little bit I suspect suspect she is mildly hemoconcentrated. Her urinalysis is contaminated but leukocyte Estrace and nitrates are negative hCG is negative. The patient is taking fluids well will discharge home at this time Departure - Departure Time of Disposition: 19:20 Disposition: Home, Self-Care 01 Clinical Impression: Acute gastroenteritis - Discharge Information Referrals: Servando Pompa MD [Primary Care Provider] - Forms: ED Department Discharge Additional Instructions: Return to the emergency room with any questions problems or worsening symptoms. Use the Zofran, the nausea and vomiting medication 1 every 4-6 hours as needed. Clear liquid diet for the next 24 hours and then slowly advance as tolerated. You may develop some diarrhea or loose stools associated with this. If this happens start some probiotics. Sepsis Event Note - Evaluation Sepsis Screening Result: No Definite Risk - Focused Exam Vital Signs: Vital Signs Temp Pulse Resp BP Pulse Ox 06/26/19 16:35 35.8 C L 96 20 138/116 H 99 Date Exam was Performed: 06/26/19 Time Exam was Performed: 19:19
[2019-06-26] MEDS ORDERED: Lactated Ringers 1,000 ML IV ONE (17:05)
[2019-06-26] MEDS ORDERED: Ondansetron 4 MG/2 ML SDV IVPUSH ONE (17:05)
== END 2019-06-26 19:25 | disposition home or self-care (01) ==
LOC: JD.ED 16:27
DX: K52.9 Noninfective gastroenteritis and colitis, unspecified (principal); I10 Essential (primary) hypertension; E66.9 Obesity, unspecified; Z87.442 Personal history of urinary calculi; Z88.1 Allergy status to other antibiotic agents; Z68.34 Body mass index [BMI] 34.0-34.9, adult
CPT/HCPCS: 36415; 80053; 81001; 81025; 83690; 85025; 96361; 96374; 99284; J2405; J7120; 99283

== ENCOUNTER 2019-08-26 19:43 | Emergency (ER) | payer OTHER, BC ==
[2019-08-26] MEDS ORDERED: Fluorescein 1 MG Ophth Strip EYELF ONE (20:17)
[2019-08-26] MEDS ORDERED: Erythromycin Base 0.5% Ophth Oint 1 GM Tube EYELF ONE (20:31)
--- NOTE | 2019-08-26 20:38 | EDM.PDOC ---
ED HPI GENERAL MEDICAL PROBLEM - General Chief Complaint: ENT Problem Stated Complaint: FOREIGN OBJECT IN LT EYE Time Seen by Provider: 08/26/19 20:15 Source of Information: Reports: Patient History Limitations: Reports: No Limitations - History of Present Illness INITIAL COMMENTS - FREE TEXT/NARRATIVE: This is a 39-year-old female. She was underneath a car this evening when s omething dropped into her left eye. She is not certain whether it is dirt or metal or exactly what. She says there is a piece of it underneath her left upper lid. She denies any other acute symptoms. There is been no change in her vision. She just complains of irritation of that left eye. Her right eye is without complaint. Left Eye Pain Score (Numeric/FACES): 6 - Related Data Allergies Allergy/AdvReac Type Severity Reaction Status Date / Time amoxicillin Allergy Hives Verified 08/26/19 20:07 Home Meds: Home Meds Omeprazole 20 mg PO ONETIME 06/26/19 [History] Control 08/26/19 [History] Past Medical History - Past Health History Medical/Surgical History: Denies Medical/Surgical History HEENT History: Reports: None Cardiovascular History: Reports: None, Hypertension Respiratory History: Reports: SOB Gastrointestinal History: Reports: GERD Genitourinary History: Reports: Renal Calculus LINING SCRUBBER History: Reports: None, Other LINING SCRUBBER History: preeclampsia Musculoskeletal History: Reports: None Neurological History: Reports: None Psychiatric History: Reports: None Endocrine/Metabolic History: Reports: Obesity/BMI 30+, Other (See Below) Other Endocrine/Metabolic History: pituitary gland tumor Hematologic History: Reports: Anemia Immunologic History: Reports: None Oncologic (Cancer) History: Reports: None Dermatologic History: Reports: None - Past Surgical History Head Surgeries/Procedures: Reports: None HEENT Surgical History: Reports: None Cardiovascular Surgical History: Reports: None Respiratory Surgical History: Reports: None GI Surgical History: Reports: None Female Surgical History: Reports: Breast Implant, LEEP Endocrine Surgical History: Reports: None Neurological Surgical History: Reports: None Musculoskeletal Surgical History: Reports: None, Other (See Below) Other Musculoskeletal Surgeries/Procedures:: left collar bone surgery, plate placed Oncologic Surgical History: Reports: None Dermatological Surgical History: Reports: None Social & Family History - Family History Family Medical History: Noncontributory - Tobacco Use Smoking Status *Q: Never Smoker - Caffeine Use Caffeine Use: Reports: Coffee, Energy Drinks, Soda, Tea - Recreational Drug Use Recreational Drug Use: No - Living Situation & Occupation Living situation: Reports: Single Occupation: Employed ED ROS ENT - Review of Systems Review Of Systems: See Below Constitutional: Reports: No Symptoms HEENT: Reports: Eye Pain Respiratory: Reports: No Symptoms Cardiovascular: Reports: No Symptoms Endocrine: Reports: No Symptoms GI/Abdominal: Reports: No Symptoms : Reports: No Symptoms Musculoskeletal: Reports: No Symptoms Skin: Reports: No Symptoms Neurological: Reports: No Symptoms Psychiatric: Reports: No Symptoms ED EXAM, ENT - Physical Exam Exam: See Below Exam Limited By: No Limitations General Appearance: Alert, WD/WN, No Apparent Distress Eye Exam: Left Eye: Other (Does have a small speck of what looks like dirt or metal embedded in the underneath of the upper lid. I did remove that with a q- tip. Thereafter I placed fluorescein stain and I everted both the upper and the lower lids there was no other foreign body noted. There was a very faint speck on her cornea right in the center it was noted with the stain and I removed with a Q-tip with no abrasion noted. The rest of the globe examination was normal.) Ears: Normal External Exam Nose: Normal Inspection Mouth/Throat: Normal Inspection Head: Normocephalic Neck: Supple Respiratory/Chest: No Respiratory Distress Back: Full Range of Motion Extremities: Normal Inspection, Normal Range of Motion Neurological: Alert, Oriented Psychiatric: Normal Affect, Normal Mood Skin: Warm, Dry Course - Vital Signs Last Recorded V/S: Last Vital Signs Temp 98.1 F 08/26/19 20:09 Pulse 64 08/26/19 20:09 Resp 17 08/26/19 20:09 BP 124/94 H 08/26/19 20:09 Pulse Ox 98 08/26/19 20:09 - Orders/Labs/Meds Orders: Active Orders 24 hr Category Date Time Status Communication Order [RC] STAT Care 08/26/19 20:33 Ordered Meds: Medications Discontinued Medications Generic Name Dose Route Start Last Admin Trade Name Freq PRN Reason Stop Dose Admin Erythromycin 1 gm 08/26/19 20:31 Erythromycin 0.5% Ophth Oint EYELF 08/26/19 20:32 ONETIME ONE Fluorescein Sodium 1 mg 08/26/19 20:17 08/26/19 20:33 Ful-Kelsie EYELF 08/26/19 20:18 1 mg ONETIME ONE Administration Departure - Departure Time of Disposition: 20:36 Disposition: Home, Self-Care 01 Condition: Good Clinical Impression: Foreign body of eyelid, left, Foreign body in cornea, left eye, initial encounter - Discharge Information *PRESCRIPTION DRUG MONITORING PROGRAM REVIEWED*: Not Applicable *COPY OF PRESCRIPTION DRUG MONITORING REPORT IN PATIENT NANI: Not Applicable Instructions: Eye Foreign Body, [id number] Referrals: PCP,None [Primary Care Provider] - Additional Instructions: Leave the eye patch on until the morning and then you may take it off, once you take the eye patch off then use the lubricating drops for the next 24 hours if there is any irritation, do not rub your eye because that will continue to irritate it, follow-up with your family doctor as needed and return to the ER as needed Sepsis Event Note (ED) - Evaluation Sepsis Screening Result: No Definite Risk - Focused Exam Vital Signs: Vital Signs Temp Pulse Resp BP Pulse Ox 08/26/19 20:09 98.1 F 64 17 124/94 H 98 - My Orders Last 24 Hours: My Active Orders 08/26/19 20:33 Communication Order [RC] STAT - Assessment/Plan Last 24 Hours: My Active Orders 08/26/19 20:33 Communication Order [RC] STAT
== END 2019-08-26 20:50 | disposition home or self-care (01) ==
LOC: JD.ED 19:43
DX: T15.02XA Foreign body in cornea, left eye, initial encounter (principal); T15.12XA Foreign body in conjunctival sac, left eye, initial encounter; I10 Essential (primary) hypertension; E66.9 Obesity, unspecified; Z88.0 Allergy status to penicillin
CPT/HCPCS: 65205; 65220; 99283; A9270; 99282